=== PATIENT | female | born 1990 | race Caucasian/White ===

== ENCOUNTER 2016-10-31 20:01 | Emergency (ER) | payer OTHER ==
[2016-10-31 20:13] VITALS: BP 147/67; PULSE 102; RESP 18; TEMP 98.2; O2SAT 94
[2016-10-31] MEDS ORDERED: IBUPROFEN 800 MG TAB PO ONE (20:13)
[2016-10-31] MEDS ORDERED: IBUPROFEN 600 MG TAB PO ONE (20:17)
[2016-10-31] MEDS ORDERED: ALBUTEROL 3 ML DEYVIAL IH ONE (20:28)
--- NOTE | 2016-10-31 20:55 | UCPHY ---
H & P Time Seen by Provider: 10/31/16 20:19 Patient Type: New HPI/ROS: Patient complains of a cough for 2 days associated with mild sore throat and hoarse voice. She also reports a frontal headache similar to previous headaches left more than right forehead region that worsens when she coughs. The headache intensity is moderate. She reports associated subjective fevers. No exacerbating or alleviating factors are noted except for partial improvement from [id number] analgesics. ROS: No chills. No other constitutional symptoms. HEENT: No recent head trauma. Mild coryza but no nasal congestion. No ear pain. Throat pain is mild- to-moderate she still tolerating good p.o. intake. Pulmonary: No pleuritic pain. No respiratory distress. Cardiovascular: No lightheadedness. No chest pain. GI: No nausea or vomiting. 7 point ROS is otherwise negative. Smoking Status: Never smoked Physical Exam: General Appearance: Pleasant 25-year-old female Alert, no distress. Eyes: Pupils equal and round no pallor or injection. ENT, Mouth: Mucous membranes moist. Hoarse voice. No sinus tenderness to percussion Minimal posterior pharyngeal erythema with no exudates. Ears: External canals TMs are clear bilaterally. Neck: Supple Respiratory: Mild expiratory wheeze. No rales or rhonchi. There are no retractions, lungs are clear to auscultation. Cardiovascular: Regular rate and rhythm. No murmur gallop rub Gastrointestinal: Abdomen is soft and nontender, no masses, bowel sounds normal. Neurological: Alert with no focal deficits Skin: Warm and dry, no rashes. Musculoskeletal: Neck is supple nontender. Extremities are symmetrical, full range of motion. Psychiatric: Mood and affect are normal DIFFERENTIAL DIAGNOSIS: After history and physical exam differential diagnosis was considered for laryngitis, strep pharyngitis, viral bronchitis, tension headache, tension headache, early migraine headache, doubt sinusitis Constitutional: Initial Vital Signs Temperature (C) 36.8 C 10/31/16 20:09 Heart Rate 102 H 10/31/16 20:09 Respiratory Rate 18 10/31/16 20:09 Blood Pressure 147/67 H 10/31/16 20:09 O2 Sat (%) 94 10/31/16 20:09 Allergies/Adverse Reactions: oxycodone HCl [From Percocet] Allergy (Verified 10/31/16 20:09) Itching Home Medications: Medication Instructions Recorded Albuterol Hfa Anes Only [Proair 2 puffs IH Q4 PRN #1 mdi 10/31/16 Hfa Icu (*)] Bcp 10/31/16 MDM/Departure - MDM Diagnostics: Rapid strep is negative. Medications Given: Discontinued Medications Albuterol (Proventil Neb) 3 ml IH EDNOW ONE Stop: 10/31/16 20:29 Last Admin: 10/31/16 20:44 Dose: 3 ml Ibuprofen (Motrin) 600 mg PO EDNOW ONE Stop: 10/31/16 20:14 Last Admin: 10/31/16 20:21 Dose: 600 mg ED Course/Re-evaluation: Patient is treated with an albuterol neb for her frequent cough with reduction in the frequency of her cough. She also reduction in her wheezing. I counseled her regarding laryngitis and viral bronchitis. She had ibuprofen with partial relief of her headache in addition. Discussion: Patient appears nontoxic without clinical evidence of [employer] infection other concerning findings. - Depart Disposition: Home, Routine, Self-Care Clinical Impression: Laryngitis, Viral bronchitis Headache Qualifiers: Headache type: unspecified Headache chronicity pattern: acute headache Intractability: not intractable Qualifier Code: (R51) Headache Condition: Good Instructions: Laryngitis (ED), Acute Headache (ED) Additional Instructions: Diagnoses: 1. Laryngitis 2. Viral bronchitis 3. Headache Plan: Humidifier Albuterol inhaler for cough, wheeze or shortness of breath Ibuprofen-600 mg for 6 hours as needed for headache Tylenol in addition if needed Return for any significant worsening despite treatment plan Your symptoms should improve over the next 3-7 days. Stand Alone Forms: Work Excuse Prescriptions: Albuterol Hfa Anes Only [Proair Hfa Icu (*)] 2 puffs IH Q4 PRN #1 mdi PRN Reason: Wheezing Referrals: Sandee Collazo MD [Primary Care Provider] - As per Instructions - PQRS PQRS Measurement: NA
== END 2016-10-31 21:10 | disposition home or self-care (01) ==
LOC: CED 20:01
DX: J04.0 Acute laryngitis (principal); J20.8 Acute bronchitis due to other specified organisms
CPT/HCPCS: 87880-PO; 99203-PO; G0463-PO